=== PATIENT | male | born 1980 | race Caucasian/White ===

== ENCOUNTER 2025-01-14 09:59 | Emergency (ER) | payer OTHER, SELFPAY ==
[2025-01-14 10:14] VITALS: BP 122/68; PULSE 55; RESP 16; TEMP 36.6; O2SAT 100; BMI 26.6
--- NOTE | 2025-01-14 10:55 | ED_ITS ---
HPI - URI/Sore Throat General Chief Complaint: Upper Respiratory Symptoms Stated Complaint: SOB Time Seen by Provider: 01/14/25 10:13 History of Present Illness HPI Narrative: 44-year-old male with recent cough, muscle aches last few days. No history of asthma or chronic lung disease. No history of chronic heart problems. No known exposure to persons with COVID or influenza recent. He has not tried any particular medications for his symptoms. Some shortness of breath. Denies ch est pain. Has had subjective fevers, with some chills. Denies abdominal pain, vomiting, diarrhea. Related Data Previous Rx's Medication Instructions Recorded albuterol sulfate 90 mcg/actuation 2 puff inhalation Q6H PRN 01/14/25 aerosol inhaler shortness of breath or wheezing #8.5 grams Allergies Allergy/AdvReac Type Severity Reaction Status Date / Time No Known Drug Allergies Allergy Verified 01/14/25 10:14 Exam Narrative Exam Narrative: GENERAL: Well-developed patient, in mild distress. HEAD: Atraumatic. Normocephalic. EYES: Pupils equal round and reactive. Extraocular motions intact. No scleral icterus. No injection or drainage. ENT: Nose without bleeding, purulent drainage. Throat without erythema, tonsillar hypertrophy or exudate. Airway patent. NECK: Trachea midline. Non tender CARDIOVASCULAR: Regular rate and rhythm without murmurs, gallops, or rubs. RESPIRATORY: Clear to auscultation. Breath sounds equal bilaterally. No wheezes, rales, or rhonchi. GASTROINTESTINAL: Abdomen soft, non-tender, nondistended. EXTREMITIES: No edema or joint tenderness. BACK: Nontender without deformity or crepitance. No flank tenderness. NEURO: AOx3. Motor functions grossly nonfocal SKIN: No rash or erythema of visible areas Initial Vital Signs Initial Vital Signs: Vital Signs Temperature 97.9 F 01/14/25 10:14 Pulse Rate 55 L 01/14/25 10:14 Respiratory Rate 16 01/14/25 10:14 Blood Pressure 122/68 01/14/25 10:14 Pulse Oximetry 100 01/14/25 10:14 Oxygen Delivery Method Room Air 01/14/25 10:14 Course Orders Ordered: ED Orders 01/14/25 10:10 Covid-19 + FLU A/B + RSV - PCR Stat Vital Signs Vital signs: Vital Signs - 8 hr 01/14/25 10:14 Temperature 97.9 F Pulse Rate 55 L Respiratory Rate 16 Blood Pressure 122/68 Pulse Oximetry 100 Oxygen Delivery Method Room Air MDM - URI/Sore Throat Lab Data Labs: Lab Results 01/14/25 Range/Units 10:10 SARS-CoV-2 (PCR) Negative (Negative) Influenza A (RT-PCR) Flu a negative (NEGATIVE) Influenza B (RT-PCR) Flu b negative (NEGATIVE) RSV (PCR) Negative (Negative) MDM Narrative Medical decision making narrative: 44-year-old male with upper respiratory infection symptoms. Afebrile, sirs screen negative. No respiratory distress, no wheezes or crackles on examinat ion. Speaking in full sentences. COVID flu RSV swab was negative. We discussed symptomatic treatment. He had some subjective dyspnea. Trial of inhaler, prescription sent to his pharmacy. Dispensed spacer to use with that inhaler. Advised use of add BuSpar all 2 puffs 4 times daily for this next week and then as needed. Recheck advised with the regular doctor early next week. Return precautions discussed. Discharged home with family. Discharge Plan Departure Patient Disposition: Home Clinical Impression: Upper respiratory infection Instructions: DI for Viral Upper Respiratory Infection -- Adult Activity Restrictions/Additional Instructions: Recent cough, normal oxygenation, normal lung exam. COVID influenza RSV viral swab studies were negative. Consider use of Robitussin dextromethorphan [id number] for cough suppression oral syrup 4 times a day if you choose to take this. Consider use of inhaler to use with spacer, albuterol 2 puffs 4 times daily for the next week or so and then as needed, prescription sent to your pharmacy. Recheck if symptoms not improving in the next few days with your regular doctor. Return earlier to this/nearest emergency department for any change worsening symptoms or any concerns prior. Prescriptions: New albuterol sulfate 90 mcg/actuation HFA aerosol inhaler 2 puff inhalation Q6H PRN (Reason: shortness of breath or wheezing) Qty: 8.5 0RF Stand Alone Forms: Patient Portal/API/Survey
[2025-01-14 10:56] LABS: Influenza A - CEPHEID Flu A NEGATIVE (NEGATIVE); Influenza B - CEPHEID Flu B NEGATIVE (NEGATIVE); Respiratory Syncytial Virus Negative (Negative)
[2025-01-14 10:57] LABS: COVID-19 CEPHEID 4-PLEX PCR Negative (Negative)
[2025-01-14 11:34] VITALS: BP 113/72; PULSE 57; RESP 12; TEMP 36.6; O2SAT 98
== END 2025-01-14 11:42 | disposition home or self-care (01) ==
PROVIDERS: Emergency Provider Emergency Medicine
DX: J06.9 Acute upper respiratory infection, unspecified (principal)
CPT/HCPCS: 0241U; 99281; 99282